=== PATIENT | male | born 1990 | race Caucasian/White ===

== ENCOUNTER 2017-10-19 05:18 | Emergency (ER) | payer OTHER ==
[~2017-10-19] VITALS: Ht 182.9 cm; Wt 105.2 kg
[2017-10-19] MEDS ORDERED: IV RINGERS SOLUTION,LACTATED 1,000 ML IV SCH (05:21)
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
[2017-10-19] MEDS ORDERED: LIDOCAINE 2% 20 ML VIAL. IJ ONE (05:30)
[2017-10-19] MEDS ORDERED: BUPIVACAINE MPF 0.5% 30 ML VIAL. INJ ONE (05:30)
[2017-10-19] MEDS ORDERED: BUPIVACAINE MPF 0.5% 30 ML VIAL. SQ ONE (05:30)
[2017-10-19 05:45] VITALS: BP 137/74
[2017-10-19 06:09] LABS: BASO # 0.1 x10^3/uL (0.0-0.2); BASO % 1 % (0-3); EOS # 0.2 x10^3/uL (0.0-0.7); EOS % 2 % (0-3); HEMATOCRIT 43.4 % (39.0-53.0); HEMOGLOBIN 15.1 g/dL (13.0-17.5); LYMPH # 1.4 x10^3/uL (1.0-4.8); LYMPH % 16 % (24-48); MEAN CORPUSCULAR HEMOGLOBIN 30 pg (25-35); MEAN CORPUSCULAR HGB CONC 35 g/dL (31-37); MEAN CORPUSCULAR VOLUME 87 fL (79-100); MONO # 0.6 x10^3/uL (0.0-1.1); MONO % 7 % (0-9); NEUT # 6.6 x10^3uL (1.8-7.7); NEUT % 75 % (31-73); PLATELET COUNT 212 x10^3/uL (140-400); RED BLOOD COUNT 4.99 x10^6/uL (4.30-5.70); RED CELL DISTRIBUTION WIDTH 12.7 % (11.5-14.5); WHITE BLOOD COUNT 8.8 x10^3/uL (4.0-11.0)
[2017-10-19 06:13] LABS: ALBUMIN 4.2 g/dL (3.4-5.0); CALCIUM 8.9 mg/dL (8.5-10.1); CREATININE 1.1 mg/dL (0.7-1.3); DIRECT BILIRUBIN 0.1 mg/dL (0.0-0.2); GFR 80.9; POTASSIUM 3.6 mmol/L (3.5-5.1); TOTAL BILIRUBIN 0.3 mg/dL (0.2-1.0); TOTAL PROTEIN 8.2 g/dL (6.4-8.2)
[2017-10-19 06:32] LABS: BARBITURATES NEG (NEG); BENZODIAZEPINES NEG (NEG); CANNABINOIDS NEG (NEG); COCAINE NEG (NEG); METHADONE NEG (NEG); OPIATES NEG (NEG); PHENCYCLIDINE NEG (NEG)
[2017-10-19] MEDS ORDERED: LISI1TAB3 PO (06:32)
[2017-10-19 06:33] LABS: AMPHETAMINE/METHAMPHETAMINE NEG (NEG)
[2017-10-19 06:37] LABS: BACTERIA,URINE 0 /HPF (0-FEW); BILIRUBIN,URINE NEG (NEG); CLARITY,URINE CLEAR; COLOR,URINE YELLOW; GLUCOSE,URINE NEG (NEG); NITRITE,URINE NEG (NEG); RBC,URINE 0 /HPF (0-2); UROBILINOGEN,URINE 0.2 mg/dL (0.2 mg/dL); WBC,URINE 0 /HPF (0-4)
[2017-10-19] MEDS ORDERED: DIPHTH,PERTUSS(ACELL),TET TOX 0.5 ML DISP.SYRIN. VAX IM ONE (07:00)
[2017-10-19] MEDS ORDERED: CLINDAMYCIN 900MG PREMIX 50 ML IV ONE (07:00)
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
[2017-10-19 07:43] LABS: PLT ESTIMATE ADEQUATE (ADEQUATE)
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
[2017-10-19] MEDS ORDERED: HYDROcodone/APAP 7.5/325MG 1 TAB TABLET PO ONE (08:00)
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
[2017-10-19] MEDS ORDERED: CLIN300C8 PO (08:24)
[2017-10-19] MEDS ORDERED: HYDROmorphone PF 1 MG/ML DISP.SYRIN ONE (08:56)
[2017-10-19] MEDS ORDERED: HYDROmorphone PF 1 MG/ML DISP.SYRIN IM ONE (09:15)
== END 2017-10-19 09:20 | disposition home or self-care (01) ==
LOC: ER 05:18 → EEVIPCON 05:18 → ER 09:20
DX: S02.5XXA Fracture of tooth (traumatic), initial encounter for closed fracture (principal); S00.83XA Contusion of other part of head, initial encounter; M84.442A Pathological fracture, left hand, initial encounter for fracture; M84.441A Pathological fracture, right hand, initial encounter for fracture; S01.511A Laceration without foreign body of lip, initial encounter; Z88.0 Allergy status to penicillin; Y04.0XXA Assault by unarmed brawl or fight, initial encounter; Y93.89 Activity, other specified; Y99.8 Other external cause status; Y92.149 Unspecified place in prison as the place of occurrence of the external cause
CPT/HCPCS: 12013; 36415; 70150; 70450; 70486; 71045; 72125; 73130; 80048; 80076; 80307; 81001; 83735; 84443; 85025; 85610; 85730; 90471; 90715; 96361; 96365; 96372; 96375; 99285; G0480; J1170; J3010; J3490; J7120; G0479